=== PATIENT | male | born 1990 | race Caucasian/White ===

== ENCOUNTER 2019-05-24 15:48 | Emergency (ER) | payer MEDICAID ==
[~2019-05-24] VITALS: Ht 172.7 cm; Wt 98.3 kg
[~2019-05-24 15:48] MED LIST: CARI350T PO; DIPH25CA83 PO; DOCU-28 PO; HYDR-3972 PO; ONDA4TAB12 PO; ONDA8TAB9 PO; RANI-648 PO
[2019-05-24 16:33] LABS: BASOPHILS # (AUTO) 0.1 X10'3 (0-0.2); BASOPHILS % (AUTO) 0.8 % (0-1); EOSINOPHILS # (AUTO) 0.2 X10'3 (0-0.9); EOSINOPHILS % (AUTO) 2.3 % (0-6); HEMATOCRIT 46.2 % (42.0-52.0); LYMPHOCYTES # (AUTO) 2.2 X10'3 (1.1-4.8); LYMPHOCYTES % (AUTO) 30.9 % (21-51); MEAN CORPUSCULAR HEMOGLOBIN 30.7 PG (27.0-31.0); MEAN CORPUSCULAR HGB CONC 34.5 g/dL (33.0-36.5); MEAN CORPUSCULAR VOLUME 88.8 FL (78-98); MEAN PLATELET VOLUME 7.9 FL (7.4-10.4); MONOCYTES # (AUTO) 0.7 X10'3 (0-0.9); MONOCYTES % (AUTO) 9.9 % (2-12); NEUTROPHILS # (AUTO) 3.9 X10'3 (1.8-7.7); NEUTROPHILS % (AUTO) 56.1 % (42-75); PLATELET COUNT 221 X10'3 (140-440); RED BLOOD COUNT 5.21 X10'6 (4.70-6.10); RED CELL DISTRIBUTION WIDTH 13.4 % (11.5-14.5)
[2019-05-24 16:57] LABS: PARTIAL THROMBOPLASTIN TIME 27 SECONDS (22-32)
[2019-05-24 17:02] LABS: ALANINE AMINOTRANSFERASE 36 U/L (12-78); ALBUMIN/GLOBULIN RATIO 1.1 (1.1-1.5); ALKALINE PHOSPHATASE 107 IU/L (46-116); ANION GAP 10 (8-16); ASPARTATE AMINO TRANSFERASE 20 U/L (10-37); BILIRUBIN,TOTAL 0.3 MG/DL (0.1-1.0); BLOOD UREA NITROGEN 16 MG/DL (7-18); BUN/CREATININE RATIO 15.5 (5.4-32.0); CALCIUM 8.8 MG/DL (8.5-10.1); CHLORIDE 107 MMOL/L (99-107); CREATININE 1.03 MG/DL (0.60-1.10); GLUCOSE 96 MG/DL (70-104); POTASSIUM 4.1 MMOL/L (3.5-5.1); SODIUM 142 MMOL/L (135-145); TOTAL CARBON DIOXIDE 25.3 MMOL/L (24-32); TOTAL PROTEIN 7.5 G/DL (6.4-8.2); eGFR 84 ML/MIN
[2019-05-24] MEDS ORDERED: PANT20TA2 PO (17:13)
[2019-05-24 17:20] VITALS: BP 136/76
== END 2019-05-24 17:24 | disposition home or self-care (01) ==
LOC: ER 15:48
DX: R10.13 Epigastric pain (principal); R07.89 Other chest pain; R06.02 Shortness of breath; R53.83 Other fatigue; F12.90 Cannabis use, unspecified, uncomplicated; F10.99 Alcohol use, unspecified with unspecified alcohol-induced disorder; Z98.890 Other specified postprocedural states; Z60.2 Problems related to living alone; Z56.0 Unemployment, unspecified; Z79.899 Other long term (current) drug therapy; Y90.9 Presence of alcohol in blood, level not specified
CPT/HCPCS: 36415; 71045; 80053; 84484; 85025; 85610; 85730; 93005; 99284

== ENCOUNTER 2020-03-30 14:38 | Emergency (ER) | payer MEDICAID ==
[~2020-03-30] VITALS: Ht 172.7 cm; Wt 86.4 kg
[~2020-03-30 14:38] MED LIST changes: +PANT20TA2 PO
[2020-03-30 14:40] VITALS: BP 156/96
[2020-03-30] MEDS ORDERED: ONDA4TAB6 PO (15:02)
== END 2020-03-30 15:19 | disposition home or self-care (01) ==
LOC: ER 14:39
DX: A08.4 Viral intestinal infection, unspecified (principal); R06.02 Shortness of breath; R19.7 Diarrhea, unspecified; R11.10 Vomiting, unspecified; Z20.828 Contact with and (suspected) exposure to other viral communicable diseases; F12.90 Cannabis use, unspecified, uncomplicated; Z98.890 Other specified postprocedural states; Z72.89 Other problems related to lifestyle; Z60.2 Problems related to living alone; Z56.0 Unemployment, unspecified; Z79.899 Other long term (current) drug therapy
CPT/HCPCS: 36415; 99283; U0003

== ENCOUNTER 2020-11-06 07:58 | Emergency (ER) | payer MEDICAID ==
[~2020-11-06] VITALS: Ht 172.7 cm; Wt 91.0 kg
[~2020-11-06 07:58] MED LIST changes: +ONDA4TAB6 PO
[2020-11-06 08:05] VITALS: BP 146/96
[2020-11-06] MEDS ORDERED: CEPH-585 PO (09:28)
[2020-11-06] MEDS ORDERED: SULF1TAB49 PO (09:28)
[2020-11-07] MEDS ORDERED: HYDR-3965 PO (12:50)
== END 2020-11-06 09:45 | disposition home or self-care (01) ==
LOC: ER 07:58
DX: L03.113 Cellulitis of right upper limb (principal); F12.90 Cannabis use, unspecified, uncomplicated; Z56.0 Unemployment, unspecified; Z72.89 Other problems related to lifestyle; Z98.890 Other specified postprocedural states; Z87.828 Personal history of other (healed) physical injury and trauma; Z79.2 Long term (current) use of antibiotics; Z79.899 Other long term (current) drug therapy
CPT/HCPCS: 99283

== ENCOUNTER 2020-11-07 10:51 | Emergency (ER) | payer MEDICAID ==
[~2020-11-07] VITALS: Ht 172.7 cm; Wt 95.7 kg
[~2020-11-07 10:51] MED LIST changes: +CEPH-585 PO; +SULF1TAB49 PO
[2020-11-07] MEDS ORDERED: cephalexin 250mg capsule PO ONE (12:45)
[2020-11-07] MEDS ORDERED: HYDR-3965 PO (12:50)
[2020-11-07 13:09] VITALS: BP 132/97
== END 2020-11-07 13:11 | disposition home or self-care (01) ==
LOC: ER 10:52
DX: L03.115 Cellulitis of right lower limb (principal); F15.90 Other stimulant use, unspecified, uncomplicated; Z72.89 Other problems related to lifestyle; Z56.0 Unemployment, unspecified; Z87.81 Personal history of (healed) traumatic fracture; Z79.2 Long term (current) use of antibiotics; Z79.899 Other long term (current) drug therapy
CPT/HCPCS: 99283; 99284

== ENCOUNTER 2021-02-02 13:53 | Emergency (ER) | payer MEDICAID ==
[~2021-02-02] VITALS: Ht 172.7 cm; Wt 95.6 kg
[~2021-02-02 13:53] MED LIST changes: -SULF1TAB49 PO
[2021-02-02 15:01] LABS: BASOPHILS # (AUTO) 0.1 X10'3 (0-0.2); BASOPHILS % (AUTO) 0.7 % (0-1); EOSINOPHILS # (AUTO) 0.1 X10'3 (0-0.9); EOSINOPHILS % (AUTO) 0.8 % (0-6); HEMATOCRIT 46.5 % (42.0-52.0); LYMPHOCYTES # (AUTO) 2.2 X10'3 (1.1-4.8); LYMPHOCYTES % (AUTO) 26.5 % (21-51); MEAN CORPUSCULAR HEMOGLOBIN 30.4 PG (27.0-31.0); MEAN CORPUSCULAR HGB CONC 34.5 g/dL (33.0-36.5); MEAN CORPUSCULAR VOLUME 88.1 FL (78-98); MEAN PLATELET VOLUME 7.7 FL (7.4-10.4); MONOCYTES # (AUTO) 0.8 X10'3 (0-0.9); MONOCYTES % (AUTO) 9.7 % (2-12); NEUTROPHILS # (AUTO) 5.1 X10'3 (1.8-7.7); NEUTROPHILS % (AUTO) 62.3 % (42-75); PLATELET COUNT 257 X10'3 (140-440); RED BLOOD COUNT 5.28 X10'6 (4.70-6.10); RED CELL DISTRIBUTION WIDTH 13.4 % (11.5-14.5); WHITE BLOOD COUNT 8.2 X10'3 (4.5-11.0)
[2021-02-02 15:05] LABS: CLARITY,URINE CLEAR (Clear); COLOR,URINE YELLOW (Yellow); GLUCOSE, URINE NEGATIVE (Neg); KETONES,URINE NEGATIVE (Neg); LEUKOCYTE ESTERASE ,URINE NEGATIVE (Neg); NITRITES, URINE NEGATIVE (Neg); OCCULT BLOOD,URINE NEGATIVE (Neg); PROTEIN,URINE NEGATIVE (Neg); UROBILINOGEN,URINE 0.2 E.U/dL (0.2-1.0)
[2021-02-02 15:25] LABS: ALANINE AMINOTRANSFERASE 44 U/L (12-78); ALBUMIN 4.2 G/DL (3.4-5.0); ALBUMIN/GLOBULIN RATIO 1.1 (1.1-1.5); ALKALINE PHOSPHATASE 129 IU/L (46-116); AMYLASE 65 U/L (25-115); ANION GAP 10 (8-16); ASPARTATE AMINO TRANSFERASE 22 U/L (10-37); BILIRUBIN,TOTAL 0.4 MG/DL (0.1-1.0); BLOOD UREA NITROGEN 17 MG/DL (7-18); BUN/CREATININE RATIO 15.9 (5.4-32.0); CALCIUM 9.2 MG/DL (8.5-10.1); CHLORIDE 102 MMOL/L (99-107); CREATININE 1.07 MG/DL (0.60-1.10); GLUCOSE 94 MG/DL (70-104); LIPASE 97 U/L (73-393); POTASSIUM 3.7 MMOL/L (3.5-5.1); SODIUM 138 MMOL/L (135-145); TOTAL CARBON DIOXIDE 26.1 MMOL/L (24-32); TOTAL PROTEIN 7.9 G/DL (6.4-8.2); eGFR 80 ML/MIN
[2021-02-02 15:28] LABS: UA COLLECTION TYPE CLN CATCH MIDSTREAM
[2021-02-02 16:54] VITALS: BP 134/96
== END 2021-02-02 16:53 | disposition home or self-care (01) ==
LOC: ER 13:53
DX: R10.9 Unspecified abdominal pain (principal); F12.10 Cannabis abuse, uncomplicated; Z56.0 Unemployment, unspecified
CPT/HCPCS: 36415; 80053; 81003; 82150; 83690; 85025; 99283

== ENCOUNTER → 2021-03-14 | Emergency (ER) | payer MEDICAID ==
[~2021-03-14] VITALS: Ht 170.2 cm; Wt 96.9 kg
[2021-03-14 06:53] VITALS: BP 108/87
== END | disposition home or self-care (01) ==
LOC: ER 06:45
DX: J02.9 Acute pharyngitis, unspecified (principal); R51.9 Headache, unspecified; R05 Cough; J34.89 Other specified disorders of nose and nasal sinuses; R09.81 Nasal congestion; F12.90 Cannabis use, unspecified, uncomplicated; Z60.2 Problems related to living alone; Z56.0 Unemployment, unspecified; Z98.890 Other specified postprocedural states; Z79.2 Long term (current) use of antibiotics; Z79.899 Other long term (current) drug therapy
CPT/HCPCS: 99282

== ENCOUNTER 2022-03-15 05:45 | Day surgery (SDC) | payer MEDICAID ==
[2022-03-15] VITALS (8 sets, daily range): BP systolic 128–160; BP diastolic 88–100
[~2022-03-15] VITALS: Ht 170.2 cm; Wt 89.1 kg
[~2022-03-15 05:45] MED LIST changes: -CARI350T PO; -CEPH-585 PO; -DIPH25CA83 PO; -DOCU-28 PO; -HYDR-3972 PO; +NO HOME MEDS; -ONDA4TAB12 PO; -ONDA4TAB6 PO; -ONDA8TAB9 PO; -PANT20TA2 PO; -RANI-648 PO; +acetaminophen 325mg tablet PO ONE; +ceFAZolin inj. 2,000 MG in dextrose 5%-water 100 ML IV ONE; +celeCOXIB 100mg capsule PO ONE; +famotidine 20mg tablet PO ONE; +gabapentin 300mg capsule PO ONE; +metoclopramide 5 mg/ml inj IV ONE; +oxyCODONE SR 10mg (sust. release) tab -2 tabs (20mg) PO ONE; +ringers solution, lacted 1,000 ML IV SCH; +tranexamic acid inj. 1,000 MG in 0.7% saline 100 ML PMX IV ONE; +vancomycin 1,500 MG in NS 300ml IV soln IV ONE
[2022-03-15 08:29] LABS: BASOPHILS # (AUTO) 0.1 X10'3 (0-0.2); BASOPHILS % (AUTO) 0.8 % (0-1); EOSINOPHILS # (AUTO) 0.1 X10'3 (0-0.9); EOSINOPHILS % (AUTO) 1.2 % (0-6); HEMATOCRIT 44.3 % (42.0-52.0); HEMOGLOBIN 15.5 g/dl (14.0-17.9); LYMPHOCYTES # (AUTO) 2.7 X10'3 (1.1-4.8); LYMPHOCYTES % (AUTO) 31.2 % (21-51); MEAN CORPUSCULAR HEMOGLOBIN 29.2 PG (27.0-31.0); MEAN CORPUSCULAR HGB CONC 35.1 g/dL (33.0-36.5); MEAN CORPUSCULAR VOLUME 83.4 FL (78-98); MEAN PLATELET VOLUME 6.7 FL (7.4-10.4); MONOCYTES # (AUTO) 0.6 X10'3 (0-0.9); MONOCYTES % (AUTO) 7.3 % (2-12); NEUTROPHILS # (AUTO) 5.2 X10'3 (1.8-7.7); NEUTROPHILS % (AUTO) 59.5 % (42-75); PLATELET COUNT 275 X10'3 (140-440); RED BLOOD COUNT 5.32 X10'6 (4.70-6.10); RED CELL DISTRIBUTION WIDTH 13.2 % (11.5-14.5); WHITE BLOOD COUNT 8.8 X10'3 (4.5-11.0)
[2022-03-15] MEDS ORDERED: sevoflurane 250ml liquid IH ONE (08:31)
[2022-03-15] MEDS ORDERED: midazolam 1 mg/ML 2ml injection ONE (08:32)
[2022-03-15] MEDS ORDERED: fentaNYL /PF 50mcg/ml 5ml ampule ONE (08:34)
[2022-03-15 08:58] LABS: ALANINE AMINOTRANSFERASE 29 U/L (12-78); ALBUMIN 3.4 G/DL (3.4-5.0); ALKALINE PHOSPHATASE 134 IU/L (46-116); ANION GAP 9 (8-16); ASPARTATE AMINO TRANSFERASE 19 U/L (10-37); BILIRUBIN,TOTAL 0.3 MG/DL (0.1-1.0); BLOOD UREA NITROGEN 16 MG/DL (7-18); CALCIUM 8.7 MG/DL (8.5-10.1); CHLORIDE 105 MMOL/L (99-107); GLUCOSE 100 MG/DL (70-104); SODIUM 136 MMOL/L (135-145); TOTAL CARBON DIOXIDE 22.4 MMOL/L (24-32); TOTAL PROTEIN 6.9 G/DL (6.4-8.2); eGFR 86 ML/MIN
[2022-03-15] MEDS ORDERED: ringers solution, lacted 1,000 ML IV SCH (09:10)
[2022-03-15] MEDS ORDERED: morphine 4 MG/ML inj SYRINge IV PRN (09:10)
[2022-03-15] MEDS ORDERED: meperidine/PF 25mg/ml syringe IV PRN ×3 (09:10)
[2022-03-15] MEDS ORDERED: morphine 2 MG/ML inj. syringe IV PRN (09:10)
[2022-03-15] MEDS ORDERED: proCHLORperazine 10 MG/2 ml inj IV PRN (09:10)
[2022-03-15] MEDS ORDERED: ondansetron/PF 4mg/2ml inj IV PRN (09:10)
[2022-03-15] MEDS ORDERED: ROPIVAcaine 0.5% (5mg/ml) 30ml vial ONE (09:28)
[2022-03-15] MEDS ORDERED: propofol inj 20 ML IV ONE (09:49)
--- NOTE | 2022-03-15 09:57 | NUR ---
Received from OR via [facility] , accompanied by Anesthesiologist BRIANA and report given by Anesthesiolgist. PATIENT WITH 20G PIV IN LEFT UE RUNNING LR AT 100. ANTERIOR RIGHT SHOULD ISLAND IS CDI. + RADIAL PULSE OT RIGHT UE. 10L MASK ON UPON ARRIVAL WITH 99a% SATURATIONS. WILL CONTINUE TO ASSESS AND TREAT. Addendum: 03/15/22 at 1004 by Lei Real RN, RN Amended: Links added.
[2022-03-15] MEDS ORDERED: oxyCODONE SR 10mg (sust. release) tab -2 tabs (20mg) PO ONE (10:20)
--- NOTE | 2022-03-15 10:57 | NUR ---
ALL DISCHARGE CRITERIA HAS BEEN MET. VSS, PAIN AT A TOLERABLE LEVEL, VOIDING AND ABLE TO SAFELY AMBULATE AND TRANSFER SELF. IV TAKEN OUT WITHOUT ANY COMPLICATIONS. ALL DISCHARGE INSTRUCTIONS COVERED WITH PATIENT AND ALL QUESTIONS ANSWERED. PATIENT TAKEN OUT VIA WHEELCHAIR TO PERSONAL VEHICLE WHERE FAMILY/FRIEND DROVE PATIENT HOME. Addendum: 03/15/22 at 1110 by Lei Real RN, RN Amended: Links added.
--- NOTE | 2022-03-15 11:09 | NUR ---
INSTRUCTIONS COVERED WITH PATIENT, FIANCEE AND MOTHER. ALL QUESTIONS ANSWERED. Addendum: 03/15/22 at 1110 by Lei Real RN, RN Amended: Links added.
== END 2022-03-15 10:57 | disposition home or self-care (01) ==
LOC: PAS 05:45
PROVIDERS: ATTEND Orthopaedic Surgery
DX: S42.021A Displaced fracture of shaft of right clavicle, initial encounter for closed fracture (principal); V29.9XXA Motorcycle rider (driver) (passenger) injured in unspecified traffic accident, initial encounter; Y93.89 Activity, other specified; Y92.89 Other specified places as the place of occurrence of the external cause; Y99.8 Other external cause status; Z79.899 Other long term (current) drug therapy; Z72.89 Other problems related to lifestyle; Z98.890 Other specified postprocedural states
CPT/HCPCS: 23515; 36415; 73000; 80053; 82948; 85025; C1713; J0690; J2250; J2405; J2704; J2765; J2795; J3010; J3370; J3490; J7030; J7040; J7060; J7120; Z7506; Z7508; Z7512; 76000; A4565; A4618; A7000

== ENCOUNTER 2022-11-14 16:33 | Emergency (ER) | payer MEDICAID ==
[~2022-11-14] VITALS: Ht 170.2 cm; Wt 90.9 kg
[~2022-11-14 16:33] MED LIST changes: -acetaminophen 325mg tablet PO ONE; -ceFAZolin inj. 2,000 MG in dextrose 5%-water 100 ML IV ONE; -celeCOXIB 100mg capsule PO ONE; -famotidine 20mg tablet PO ONE; -gabapentin 300mg capsule PO ONE; -metoclopramide 5 mg/ml inj IV ONE; -oxyCODONE SR 10mg (sust. release) tab -2 tabs (20mg) PO ONE; -ringers solution, lacted 1,000 ML IV SCH; -tranexamic acid inj. 1,000 MG in 0.7% saline 100 ML PMX IV ONE; -vancomycin 1,500 MG in NS 300ml IV soln IV ONE
[2022-11-14 17:05] LABS: BASOPHILS % (AUTO) 0.2 % (0-1); EOSINOPHILS % (AUTO) 0 % (0-6); HEMATOCRIT 53.7 % (42.0-52.0); LYMPHOCYTES # (AUTO) 1.5 X10'3 (1.1-4.8); LYMPHOCYTES % (AUTO) 8.3 % (21-51); MEAN CORPUSCULAR HEMOGLOBIN 30.8 PG (27.0-31.0); MEAN CORPUSCULAR HGB CONC 34.8 g/dL (33.0-36.5); MEAN CORPUSCULAR VOLUME 88.3 FL (78-98); MEAN PLATELET VOLUME 7.9 FL (7.4-10.4); MONOCYTES # (AUTO) 1.5 X10'3 (0-0.9); MONOCYTES % (AUTO) 8.1 % (2-12); NEUTROPHILS # (AUTO) 15.2 X10'3 (1.8-7.7); NEUTROPHILS % (AUTO) 83.4 % (42-75); PLATELET COUNT 316 X10'3 (140-440); RED BLOOD COUNT 6.08 X10'6 (4.70-6.10); RED CELL DISTRIBUTION WIDTH 13.6 % (11.5-14.5); WHITE BLOOD COUNT 18.3 X10'3 (4.5-11.0)
[2022-11-14 17:08] LABS: HEMOGLOBIN 18.7 g/dl (14.0-17.9)
--- NOTE | 2022-11-14 17:29 | NUR ---
unable to get bp reading earlier on pt as he was not staying still and bp machine was showing error tried 3 times while mother present in the triage.
--- NOTE | 2022-11-14 17:38 | NUR ---
rechecked the vitals at this time pain 06/17 ,bp is high due to pain ,stated " feeling mouna dehydrated that i am having blurred vison".
[2022-11-14 18:15] LABS: ALANINE AMINOTRANSFERASE 27 U/L (12-78); ALBUMIN/GLOBULIN RATIO 1.2 (1.1-1.5); ALKALINE PHOSPHATASE 144 IU/L (46-116); ANION GAP 17 (8-16); ASPARTATE AMINO TRANSFERASE 19 U/L (10-37); BILIRUBIN,TOTAL 1.3 MG/DL (0.1-1.0); BLOOD UREA NITROGEN 16 MG/DL (7-18); BUN/CREATININE RATIO 15.7 (5.4-32.0); CALCIUM 10.7 MG/DL (8.5-10.1); CHLORIDE 100 MMOL/L (99-107); CREATININE 1.02 MG/DL (0.60-1.10); GLUCOSE 117 MG/DL (70-104); LIPASE 105 U/L (73-393); POTASSIUM 3.8 MMOL/L (3.5-5.1); SODIUM 137 MMOL/L (135-145); TOTAL CARBON DIOXIDE 19.7 MMOL/L (24-32); TOTAL PROTEIN 9.1 G/DL (6.4-8.2); eGFR 84 ML/MIN
[2022-11-14] MEDS ORDERED: diphenhydrAMINE 50 mg/ml inj IV ONE (18:25)
[2022-11-14] MEDS ORDERED: normal saline 1000ML IV soln IVB ONE ×2 (18:25)
[2022-11-14] MEDS ORDERED: metoclopramide 5 mg/ml inj IV ONE (18:25)
[2022-11-14] MEDS ORDERED: CefTRIAXone 2gm/D5W 50ml BAG 50 ML IV ONE (18:35)
[2022-11-14] MEDS ORDERED: glycopyrrolate 0.2mg/ml inj IV ONE (18:35)
--- NOTE | 2022-11-14 19:05 | NUR ---
Patient reports he usually gets dilaudid, states thats what usually works for him.
--- NOTE | 2022-11-14 19:39 | NUR ---
Patient reports nausea is improved, reports pain improved to 3-4/10.
[2022-11-14 19:43] LABS: CLARITY,URINE CLEAR (Clear); COLOR,URINE YELLOW (Yellow); GLUCOSE, URINE NEGATIVE (Neg); KETONES,URINE >=80 mg/dl (Neg); LEUKOCYTE ESTERASE ,URINE NEGATIVE (Neg); NITRITES, URINE NEGATIVE (Neg); OCCULT BLOOD,URINE NEGATIVE (Neg); PROTEIN,URINE 30 mg/dl (Neg); UROBILINOGEN,URINE 0.2 E.U/dL (0.2-1.0)
[2022-11-14 19:50] LABS: UA COLLECTION TYPE CLN CATCH MIDSTREAM
[2022-11-14 19:51] LABS: BACTERIA,URINE NONE SEEN /HPF (Neg); MUCUS STRANDS FEW /LPF (Neg); RBC,URINE 0-2 /HPF (0-2); SQUAMOUS EPITHELIAL CELL,UR FEW /LPF (FEW); WBC,URINE 0-4 /HPF (0-4)
[2022-11-14] MEDS ORDERED: ONDA4TAB12 PO (20:29)
[2022-11-14 20:55] VITALS: BP 121/77
== END 2022-11-14 20:57 | disposition home or self-care (01) ==
LOC: ER 16:35
DX: R10.9 Unspecified abdominal pain (principal); R68.83 Chills (without fever)
CPT/HCPCS: 36415; 80053; 81001; 83690; 84145; 85025; 96365; 96375; 99284; J0696; J1200; J2765; J3490; J7030

== ENCOUNTER 2022-11-15 08:57 | Emergency (ER) | payer MEDICAID ==
[~2022-11-15] VITALS: Ht 177.8 cm; Wt 77.3 kg
[~2022-11-15 08:57] MED LIST changes: +ONDA4TAB12 PO
[2022-11-15 09:00] VITALS: BP 140/88
[2022-11-15] MEDS ORDERED: diphenhydrAMINE 50 mg/ml inj IM ONE (10:50)
[2022-11-15] MEDS ORDERED: mag hydrox/Alum hydrox/simeth 30ml oral suspension PO ONE (10:50)
[2022-11-15] MEDS ORDERED: normal saline 1000ML IV soln IVB ONE (10:50)
[2022-11-15] MEDS ORDERED: LIDOcaine Viscous 15ml cup MM PRN (10:50)
[2022-11-15] MEDS ORDERED: haloperidol lactate 5mg/ml inj IM ONE (10:50)
[2022-11-15] MEDS ORDERED: ondansetron 4mg rapidly disintigrating tab PO ONE (10:50)
--- NOTE | 2022-11-15 12:53 | NUR ---
PT TOLERATED PO CHALLENGE.
== END 2022-11-15 13:06 | disposition home or self-care (01) ==
LOC: ER 08:57
DX: R11.2 Nausea with vomiting, unspecified (principal); R10.84 Generalized abdominal pain
CPT/HCPCS: 96360; 96361; 96372; 99284; J1200; J1630; J7030

== ENCOUNTER 2024-06-18 09:16 | Emergency (ER) | payer MEDICAID ==
[~2024-06-18] VITALS: Ht 170.2 cm; Wt 77.3 kg
[~2024-06-18 09:16] MED LIST changes: +ONDA-243 PO; -ONDA4TAB12 PO
[2024-06-18 09:17] VITALS: TEMP 97.8
[2024-06-18 09:59] LABS: BASOPHILS % (AUTO) 0.7 % (0-1); EOSINOPHILS % (AUTO) 0.5 % (0-6); HEMATOCRIT 46.7 % (42.0-52.0); HEMOGLOBIN 15.6 g/dl (14.0-17.9); LYMPHOCYTES # (AUTO) 1.9 X10'3 (1.1-4.8); LYMPHOCYTES % (AUTO) 25.1 % (21-51); MEAN CORPUSCULAR HEMOGLOBIN 29.1 PG (27.0-31.0); MEAN CORPUSCULAR HGB CONC 33.5 g/dL (33.0-36.5); MEAN PLATELET VOLUME 7.5 FL (7.4-10.4); MONOCYTES # (AUTO) 0.6 X10'3 (0-0.9); MONOCYTES % (AUTO) 7.6 % (2-12); NEUTROPHILS % (AUTO) 66.1 % (42-75); PLATELET COUNT 338 X10'3 (140-440); RED BLOOD COUNT 5.36 X10'6 (4.70-6.10); RED CELL DISTRIBUTION WIDTH 14.1 % (11.5-14.5); WHITE BLOOD COUNT 7.6 X10'3 (4.5-11.0)
[2024-06-18 10:24] LABS: ALANINE AMINOTRANSFERASE 18 U/L (12-78); ALKALINE PHOSPHATASE 136 IU/L (46-116); ANION GAP 7 (8-16); BILIRUBIN,TOTAL 0.6 MG/DL (0.1-1.0); BLOOD UREA NITROGEN 8 MG/DL (7-18); BUN/CREATININE RATIO 8.7 (10.0-20.0); CALCIUM 9.5 MG/DL (8.5-10.1); CHLORIDE 101 MMOL/L (99-107); CREATININE 0.92 MG/DL (0.60-1.10); GLUCOSE 113 MG/DL (70-104); LIPASE 30 U/L (16-77); SODIUM 135 MMOL/L (135-145); TOTAL CARBON DIOXIDE 27.5 MMOL/L (24-32); eCRCL 104 ML/MIN; eGFR > 90 ML/MIN
[2024-06-18 10:29] LABS: ASPARTATE AMINO TRANSFERASE 22 U/L (10-37); POTASSIUM 4.3 MMOL/L (3.5-5.1)
[2024-06-18] MEDS: ondansetron/PF 4mg/2ml inj IV ONE (10:40)
[2024-06-18] MEDS: LORazepam 2 mg/ml vial IV ONE (10:40)
[2024-06-18] MEDS: normal saline 1000ML IV soln IVB ONE (10:41)
[2024-06-18] MEDS: morphine 2 MG/ML inj. syringe IV PRN (10:52)
[2024-06-18] MEDS: pantoprazole 40 MG vial IV ONE (10:52)
[2024-06-18 13:05] VITALS: BP 146/87; PULSE 57; O2SAT 98
[2024-06-18] MEDS ORDERED: iohexol 300mg/ml 100ml inj. ONE (13:22)
[2024-06-18 14:18] LABS: URINE AMPHETAMINE SCREEN NEGATIVE (Neg); URINE BARBITUATE SCREEN NEGATIVE (Neg); URINE BENZODIAZEPINES SCREEN NEGATIVE (Neg); URINE CANNABINOID SCREEN POSITIVE (Neg); URINE COCAINE SCREEN NEGATIVE (Neg); URINE METHADONE SCREEN NEGATIVE (Neg); URINE OPIATE SCREEN POSITIVE (Neg); URINE PHENCYCLIDINE SCREEN NEGATIVE (Neg)
[2024-06-18] MEDS ORDERED: SUCR1TAB34 PO (15:35)
[2024-06-18] MEDS ORDERED: PANT-47 PO (15:35)
[2024-06-18 16:04] VITALS: RESP 16
== END 2024-06-18 16:10 | disposition home or self-care (01) ==
LOC: ER 09:17
DX: R10.13 Epigastric pain (principal); F12.90 Cannabis use, unspecified, uncomplicated; Z98.890 Other specified postprocedural states; Z60.2 Problems related to living alone; Z56.0 Unemployment, unspecified
CPT/HCPCS: 36415; 71045; 74177; 80053; 80305; 80320; 83690; 85025; 96374; 96375; 96376; 99285; J2060; J2270; J2405; J2470; J7030; Q9967

== ENCOUNTER 2024-06-28 11:04 | Emergency (ER) | payer MEDICAID ==
[~2024-06-28] VITALS: Ht 170.2 cm; Wt 81.8 kg
[~2024-06-28 11:04] MED LIST changes: +PANT-47 PO; +SUCR1TAB34 PO
[2024-06-28 11:07] VITALS: TEMP 97.8
[2024-06-28 11:41] LABS: BASOPHILS % (AUTO) 0.3 % (0-1); EOSINOPHILS # (AUTO) 0.1 X10'3 (0-0.9); EOSINOPHILS % (AUTO) 0.7 % (0-6); HEMATOCRIT 46.2 % (42.0-52.0); HEMOGLOBIN 15.2 g/dl (14.0-17.9); LYMPHOCYTES # (AUTO) 1.3 X10'3 (1.1-4.8); MEAN CORPUSCULAR HEMOGLOBIN 28.9 PG (27.0-31.0); MEAN CORPUSCULAR VOLUME 87.5 FL (78-98); MEAN PLATELET VOLUME 7.2 FL (7.4-10.4); MONOCYTES # (AUTO) 0.7 X10'3 (0-0.9); MONOCYTES % (AUTO) 8.3 % (2-12); NEUTROPHILS # (AUTO) 5.9 X10'3 (1.8-7.7); NEUTROPHILS % (AUTO) 74.7 % (42-75); PLATELET COUNT 289 X10'3 (140-440); RED BLOOD COUNT 5.27 X10'6 (4.70-6.10); RED CELL DISTRIBUTION WIDTH 13.7 % (11.5-14.5); WHITE BLOOD COUNT 7.8 X10'3 (4.5-11.0)
[2024-06-28 12:00] LABS: APTT 25 SECONDS (22-32); PROTHROMBIN TIME 10.8 SECONDS (9.0-12.0)
[2024-06-28 12:07] LABS: ALANINE AMINOTRANSFERASE 25 U/L (12-78); ALKALINE PHOSPHATASE 115 IU/L (46-116); ANION GAP 8 (8-16); ASPARTATE AMINO TRANSFERASE 17 U/L (10-37); BILIRUBIN,TOTAL 0.6 MG/DL (0.1-1.0); BLOOD UREA NITROGEN 10 MG/DL (7-18); CALCIUM 8.8 MG/DL (8.5-10.1); CHLORIDE 101 MMOL/L (99-107); GLUCOSE 119 MG/DL (70-104); LIPASE 97 U/L (16-77); SODIUM 136 MMOL/L (135-145); TOTAL CARBON DIOXIDE 26.9 MMOL/L (24-32); eCRCL 95 ML/MIN; eGFR 85 ML/MIN
[2024-06-28] MEDS: proCHLORperazine 10 MG/2 ml inj IV ONE (13:20)
[2024-06-28] MEDS: ondansetron/PF 4mg/2ml inj IV ONE (13:20)
[2024-06-28] MEDS: normal saline 1000ML IV soln IVB ONE (13:22)
[2024-06-28 15:08] LABS: URINE AMPHETAMINE SCREEN POSITIVE (Neg); URINE BARBITUATE SCREEN NEGATIVE (Neg); URINE BENZODIAZEPINES SCREEN NEGATIVE (Neg); URINE CANNABINOID SCREEN POSITIVE (Neg); URINE COCAINE SCREEN NEGATIVE (Neg); URINE METHADONE SCREEN NEGATIVE (Neg); URINE OPIATE SCREEN NEGATIVE (Neg); URINE PHENCYCLIDINE SCREEN NEGATIVE (Neg)
[2024-06-28 15:11] LABS: BILIRUBIN,URINE NEGATIVE (Neg); CLARITY,URINE CLEAR (Clear); COLOR,URINE YELLOW (Yellow); GLUCOSE, URINE NEGATIVE (Neg); KETONES,URINE 15 mg/dl (Neg); LEUKOCYTE ESTERASE ,URINE NEGATIVE (Neg); NITRITES, URINE NEGATIVE (Neg); OCCULT BLOOD,URINE NEGATIVE (Neg); PROTEIN,URINE NEGATIVE (Neg); UA COLLECTION TYPE CLN CATCH MIDSTREAM; UROBILINOGEN,URINE 0.2 E.U/dL (0.2-1.0)
[2024-06-28] MEDS ORDERED: PROC-8 PO (15:53)
[2024-06-28] MEDS ORDERED: PANT20TA18 PO (15:53)
[2024-06-28] MEDS: morphine 4 MG/ML inj SYRINge IV ONE (16:02)
[2024-06-28] MEDS: metoclopramide 5 mg/ml inj IV ONE (16:02)
[2024-06-28 16:18] VITALS: BP 142/95; PULSE 97; RESP 16; O2SAT 97
== END 2024-06-28 16:21 | disposition home or self-care (01) ==
LOC: ER 11:05
DX: R11.15 Cyclical vomiting syndrome unrelated to migraine (principal); F12.90 Cannabis use, unspecified, uncomplicated; Z79.899 Other long term (current) drug therapy
CPT/HCPCS: 36415; 80053; 80305; 81003; 83690; 85025; 85610; 85730; 86885; 86900; 86901; 96361; 96374; 96375; 99284; J0780; J2270; J2405; J2765; J7030

== ENCOUNTER 2024-06-30 18:22 | Emergency (ER) | payer MEDICAID ==
[~2024-06-30] VITALS: Ht 172.7 cm; Wt 82.7 kg
[~2024-06-30 18:22] MED LIST changes: +PANT20TA18 PO; +PROC-8 PO
[2024-06-30 18:53] VITALS: BP 136/96; PULSE 86; RESP 17; TEMP 98.7; O2SAT 98
[2024-06-30] MEDS ORDERED: EPIN0.3P3 IM (19:16)
== END 2024-06-30 19:57 | disposition left against medical advice (07) ==
LOC: ER 18:22
DX: G24.02 Drug induced acute dystonia (principal); G25.71 Drug induced akathisia; H51.8 Other specified disorders of binocular movement; F12.90 Cannabis use, unspecified, uncomplicated; Z79.899 Other long term (current) drug therapy; Z98.890 Other specified postprocedural states; Z60.2 Problems related to living alone; Z56.0 Unemployment, unspecified
CPT/HCPCS: 99282